=== PATIENT | male | born 1970 | race Caucasian/White ===

== ENCOUNTER 2016-12-16 14:16 | Emergency (ER) | payer OTHER ==
[~2016-12-16] VITALS: Ht 175.3 cm; Wt 109.6 kg
[2016-12-16 14:55] VITALS: BP_DIAS 106
[2016-12-16 15:42] LABS: ASPARTATE AMINO TRANSFERASE 15 U/L (15-37); BLOOD UREA NITROGEN 9 mg/dL (7-18)
[2016-12-16 16:37] VITALS: BP_SYST 124
[2016-12-16 17:00] LABS: IS PT STATUS REG ER OR PRE ER? YES
== END 2016-12-16 16:39 | disposition home or self-care (01) ==
LOC: ED 16:23
DX: I10 Essential (primary) hypertension (principal); E78.5 Hyperlipidemia, unspecified
CPT/HCPCS: 36415; 71010; 80053; 84443; 84484; 85025; 93005; 99285